=== PATIENT | female | born 1985 | race Caucasian/White ===

== ENCOUNTER 2016-10-21 16:46 | Emergency (ER) | payer OTHER ==
--- NOTE | 2016-10-21 18:46 | ED ORDER SUMMARY ---
..... Patient: ERIN HORAN OrderSheet [facility] VisitID: [id number] [address] [place] [address] 31y, F Registration Date/Time: 10/21/2016 ORDER SHEET Weight: 58.9 kg (stated) Allergies: Vicodin GENERAL ORDERS: Ankle 3 or 4V Left Urgent (17:23 10/21/2016 HBivens A.R.N.P.) (Ack 17:27 Alejandra) (18:20 SBalde R.N.) Oscalcis Left Urgent (17:55 10/21/2016 HBivens A.R.N.P.) (Ack 17:57 Alejandra) (18:20 SBalde R.N.) Splint (LE) (Left) (Short Leg Posterior) (18:25 10/21/2016 HBivens A.R.N.P.) (18:40 SBalde R.N.) Crutches (18:25 10/21/2016 HBivens A.R.N.P.) (18:40 SBalde R.N.) MEDICATION ORDERS: Hydrocodone-APAP PO 5/325 mg (NOW, HIGH ALERT MEDICATION) (17:23 10/21/2016 HBivens A.R.N.P.) (Ack 17:26 SBalde R.N.) (Cancelled: Patient Abdskpc67:36 SBalde R.N.) Toradol IM 60 mg (NOW) (17:51 10/21/2016 HBivens A.R.N.P.) (Cancelled: Other17:56 HBivens A.R.N.P.) IV FLUIDS: ORDER SHEET NOTES: [Electronically signed by Mell Cabrera R.N. (19:02 10/21/2016)] [Electronically signed by Hanny Blankenship.R.N.P. (21:25 10/21/2016)] [Electronically locked/signed by Mell Cabrera R.N. (19:02 10/21/2016)]
--- NOTE | 2016-10-21 18:46 | ED CLINICAL REPORT ---
Clinical Report - Physicians/Mid Levels [facility] [address] [place] [address] 10/21/2016 16:47 Patient: ERIN HORAN Time Seen: 16:58; initial patient contact, initial documentation, patient care assumed. Arrived- By private vehicle. Historian- patient. HISTORY OF PRESENT ILLNESS Chief Complaint: Injury to the left ankle. The injury happened just prior to arrival. Fell 5-6 feet while climbing and landed on the ground; slipped (attempting to climb 6 foot fence and fell). Occurred at home. Patient is experiencing severe pain. Patient denies injury to the head or neck. No other injury. REVIEW OF SYSTEMS The patient complains of pain on weight bearing. She has had swelling. No tingling, weakness, numbness or skin laceration. All systems otherwise negative, except as recorded above. PAST HISTORY See nurses notes. PROBLEMS: Substance Abuse. Anxiety Reaction. UTI - Urinary Tract Infection. Dental Abscess. Nephrolithiasis. Bipolar Disorder. --16:59 Mell Cabrera R.N. ADDITIONAL SURGERIES: Cholecystectomy. Tubal Ligation. --16:59 Mell Cabrera R.N. SOCIAL HISTORY Heavy tobacco smoker. History of occasional drug use: marijuana. No alcohol use. No recent travel. Is a local resident. ADDITIONAL NOTES The nursing notes have been reviewed with agreement regarding the chief complaint, HPI, ROS, PMH and patient medications and allergies. PHYSICAL EXAM Vital Signs: 10/21/2016 16:57 BP: 121/69. HR: 98. RR: 18. O2 saturation: 100%. Temp: 98.0 F. Have been reviewed as normal and appear to be correct. Appearance: Alert. Oriented X3. No acute distress. Head: Head atraumatic. Eyes: Pupils equal, round and reactive to light. Eyes normal inspection. Respiratory: No respiratory distress. Skin: Skin intact. Skin warm and dry. Extremities: Ankle injury present. Left lateral ankle: moderate tenderness and swelling of the lateral malleolus. Limited ROM secondary to pain (diminished plantar flexion, dorsiflexion, inversion and eversion). Neurovascular intact distally. No ligamentous laxity present. No joint effusion. No erythema, laceration, abrasion, ecchymosis or puncture wound. No foreign body or deformity. No foot injury. Foot and ankle exam otherwise negative. Extremities otherwise negative. Neuro, Vascular and Tendons: Vascular status intact. Sensation intact. Motor intact. Tendon function intact. Gait: Abnormal gait. Gait not tested due to pain. Neuro: Oriented X 3. No motor deficit. No sensory deficit. Note: isolated injury to ankle. LABS, X-RAYS, AND EKG X-Rays: Left ankle. Lt Ankle X-ray: (IMPRESSION: 1. Ankle joint appears intact. 2. Comminuted, impacted calcaneal fracture. 3. Questionable distal medial malleolar avulsion fracture. Electronically Final signed by:Amna Krause MD 10/21/2016 6:55:59 PM). The X-rays were interpreted by the radiologist and contemporaneously by me and discussed with the radiologist. PROGRESS AND PROCEDURES Splint Application: Time: 18:46. Posterior short leg fiberglass splint applied to left lower leg. Splint applied by tech. Reassessed extremity following splint application. Neurovascular intact. Follow-up recommended within 3 days. Fitted for crutches by the nurse. Course of Care: 17:58 17. 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 Patient counseled in person regarding the patient's stable condition, test results and diagnosis. 18:25. Differential Diagnosis: Other possible considerations: ankle fx vs sprain. Above considerations are based on history, physical exam, reassessment and X-Ray data. Differential diagnosis was discussed with patient. Disposition: Discharged home in good and improved condition (18:46). Condition: good and stable. CLINICAL IMPRESSION Closed nondisplaced transverse fracture of the body of the left calcaneus. No angulated fracture of the foot. Fall on same level by slipping. INSTRUCTIONS Apply ice for 20 minutes four times a day for two days until better. Don't apply ice directly to skin. Use crutches until released. Wear fiberglass splint until released. Elevate affected areas above chest level for two days until better. Warnings: GENERAL WARNINGS: Return or contact your physician immediately if your condition worsens or changes unexpectedly, if not improving as expected, or if other problems arise. Specifically return if problem worsens. Prescription Medications: Motrin 800 mg tablets: take 1 tablet orally every 8 hours as needed for pain. Dispense thirty (30). No refills. Substitution is permissible. Percocet 5 mg/325 mg: take 1 tablet orally every 6 hours as needed for pain. Dispense thirty (30). No refill. Understanding of the discharge instructions verbalized by patient. Follow-up with: [facility], [facility], , [address], , [place], [address]; Gil Mccormick M.D., Ortho, , [address], , [place], [address]; Tc Shafer M.D., Ortho, , [address], , [facility] [address]; Saul Davis MD, Orthopedic Surgeon, , [address], , [place], [address]; Desean Paul MD, Orthopedic Surgeon, , [address] , [place] [phone] Follow up in about three days even if well. Call for an appointment. Summary of care provided to patient. (Electronically signed by Hanny Blankenship A.R.N.P. 10/21/2016 21:25)
--- NOTE | 2016-10-21 18:46 | ED NURSING NOTES ---
Clinical Report - Nurses [facility] [address] [place] [address] 10/21/2016 16:47 Patient: ERIN HORAN TRIAGE Triage time 16:57 Jorge Alberto 2016. Acuity: LEVEL 4. Chief Complaint: LEFT LOWER EXTREMITY PAIN and SWELLING. Alert. No acute distress. MIREILLE COMA SCORE: Mireille Coma Scale: 15- eyes open spontaneously (4); best verbal response- oriented x 4 (5); best motor response- obeys commands (6). --17:01 Mell Cabrera R.N. 16:57 10/21/16. BP: 121/69. HR: 98. RR: 18. O2 saturation: 100%. Temp: 98.0 F. Pain level now 10/10. --17:01 Mell Cabrera R.N. Weight: 58.9 kg stated. Height/Length: 62 inches Per Patient. BMI: 23.8. --16:57 Mell Cabrera R.N. Medications None. --16:59 Mell Cabrera R.N. Allergies Vicodin.(itching, vomiting) --16:59 Mell Cabrera R.N. Medication/allergy information source: the patient. --17:01 Mell Cabrera R.N. History Arrived by private vehicle. Historian: patient. Accompanied by (dropped off). Primary physician (none). ( Fell off a wooden fence while trying to crawl over it.). Injury occurred. This occurred just prior to arrival. Occurred at home. She has had trouble walking. 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 (Naproxen). PAST MEDICAL HX: Tetanus status: unknown. SOCIAL HX: Current every day heavy tobacco smoker (cigarette)- less than 1 pack per day. History of drug use: marijuana. ("very rare I smoke"). No alcohol use. No infectious disease exposure. FALL RISK ASSESSMENT: Fall risk assessment completed. No fall risk identified. NUTRITIONAL RISK ASSESSMENT: The nutritional risk assessment revealed no deficiencies. FUNCTIONAL ASSESSMENT: Functional assessment: no impairments noted. LEARNING NEEDS ASSESSMENT: The learning needs assessment revealed no barriers. SKIN INTEGRITY ASSESSMENT: Skin integrity risk assessment completed. No skin integrity risk identified. --17:01 Mell Cabrera R.N. PROBLEMS: Substance Abuse. Anxiety Reaction. UTI - Urinary Tract Infection. Dental Abscess. Nephrolithiasis. Bipolar Disorder. --16:59 Mell Cabrera R.N. ADDITIONAL SURGERIES: Cholecystectomy. Tubal Ligation. --16:59 Mell Cabrera R.N. Interventions ID band on patient. To room. --17:01 Mell Cabrera R.N. PHYSICAL ASSESSMENT To room via wheelchair. GENERAL / NEURO / PSYCH: Alert. Appears in no acute distress. EXTREMITIES: Limited ROM present (pt refuses to walk on it.). Extremity pulses are within normal limits. Neuro-vascular status intact to the extremity. Left ankle: tenderness and swelling. Left foot: tenderness. SKIN: Skin is warm and dry. --17:37 Mell Cabrera R.N. NURSING PROGRESS NOTES Patient ready for evaluation- ED physician and PERSONAL LINES INSURANCE AGENT notified. --17:01 Mell Cabrear R.N. Cold pack applied. Extremity elevated. --17:01 Mell Cabrera R.N. Call light placed in reach. Side rails up x 2. --17:01 Mell Cabrera R.N. ( Pt has had her x-rays. Offered Tordol, however pt took Ibuprofen 800 mg at 1600. Pt also allergic to Vicodin. Cancelled orders. Provider aware. No new orders at this time.). --18:24 Mell Cabrera R.N. Posterior fiberglass lower extremity splint applied to left leg, ankle and foot by tech. Distal pulses intact, sensation intact and motor within normal limits. --18:52 Debbie Christian, JEANA Tech1 Patient fit with new crutches. Crutch training performed by nurse; the patient demonstrated proper use (5'3 fitting, pt demonstrated, gait steady.). --19:00 Mell Cabrera R.N. ( Splint checked by Provider. +CMS. Discussed showering and bathing. Discussed RICE, discussed NSAIDS and Percocet rotation. Discussed follow up and if pt ends up wearing a boot, she needs to inquire about a riser for her other foot/shoe. Pt agrees to all of this.). --19:01 Mell Cabrera R.N. DISPOSITION / DISCHARGE Condition at departure: improved and stable. Fall risk assessment completed; using crutches. No learning barriers present. Discharge instructions provided and reviewed with the patient. Reviewed medication(s). Patient verbalized understanding. Written instructions provided in Armenian. The patient was discharged by the nurse practitioner. She was discharged home and accompanied by spouse. She left the Emergency Department ambulatory and via private vehicle. Spouse driving. --19:02 Mell Cabrera R.N. 19:01 10/21/16. BP: 98/63. HR: 90. RR: 18. O2 saturation: 100%. Pain level now 610. --19:02 Mell Cabrera R.N. Departure time: 18:58 Oct 21 2016. --19:02 Mell Cabrera R.N. Locked/Released at 10/21/2016 19:02 by Mell Cabrera R.N.
--- NOTE | 2016-10-21 18:46 | ED NURSING NOTES ---
Clinical Report - Nurses [facility] [address] [address] 10/21/2016 16:47 Patient: ERIN HORAN TRIAGE Triage time 16:57 Jorge Alberto 2016. Acuity: LEVEL 4. Chief Complaint: LEFT LOWER EXTREMITY PAIN and SWELLING. Alert. No acute distress. MIREILLE COMA SCORE: Mireille Coma Scale: 15- eyes open spontaneously (4); best verbal response- oriented x 4 (5); best motor response- obeys commands (6). --17:01 Mell Cabrear R.N. 16:57 10/21/16. BP: 121/69. HR: 98. RR: 18. O2 saturation: 100%. Temp: 98.0 F. Pain level now 10/10. --17:01 Mell Cabrera R.N. Weight: 58.9 kg stated. Height/Length: 62 inches Per Patient. BMI: 23.8. --16:57 Mell Cabrera R.N. Medications None. --16:59 Mell Cabrera R.N. Allergies Vicodin.(itching, vomiting) --16:59 Mell Cabrera R.N. Medication/allergy information source: the patient. --17:01 Mell Cabrera R.N. History Arrived by private vehicle. Historian: patient. Accompanied by (dropped off). Primary physician (none). ( Fell off a wooden fence while trying to crawl over it.). Injury occurred. This occurred just prior to arrival. Occurred at home. She has had trouble walking. 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 (Naproxen). PAST MEDICAL HX: Tetanus status: unknown. SOCIAL HX: Current every day heavy tobacco smoker (cigarette)- less than 1 pack per day. History of drug use: marijuana. ("very rare I smoke"). No alcohol use. No infectious disease exposure. FALL RISK ASSESSMENT: Fall risk assessment completed. No fall risk identified. NUTRITIONAL RISK ASSESSMENT: The nutritional risk assessment revealed no deficiencies. FUNCTIONAL ASSESSMENT: Functional assessment: no impairments noted. LEARNING NEEDS ASSESSMENT: The learning needs assessment revealed no barriers. SKIN INTEGRITY ASSESSMENT: Skin integrity risk assessment completed. No skin integrity risk identified. --17:01 Mell Cabrera R.N. PROBLEMS: Substance Abuse. Anxiety Reaction. UTI - Urinary Tract Infection. Dental Abscess. Nephrolithiasis. Bipolar Disorder. --16:59 Mell Cabrera R.N. ADDITIONAL SURGERIES: Cholecystectomy. Tubal Ligation. --16:59 Mell Cabrera R.N. Interventions ID band on patient. To room. --17:01 Mell Cabrera R.N. PHYSICAL ASSESSMENT To room via wheelchair. GENERAL / NEURO / PSYCH: Alert. Appears in no acute distress. EXTREMITIES: Limited ROM present (pt refuses to walk on it.). Extremity pulses are within normal limits. Neuro-vascular status intact to the extremity. Left ankle: tenderness and swelling. Left foot: tenderness. SKIN: Skin is warm and dry. --17:37 Mell Cabrera R.N. NURSING PROGRESS NOTES Patient ready for evaluation- ED physician and CRUDE TESTER notified. --17:01 Mell Cabrera R.N. Cold pack applied. Extremity elevated. --17:01 Mell Cabrera R.N. Call light placed in reach. Side rails up x 2. --17:01 Mell Cabrera R.N. ( Pt has had her x-rays. Offered Tordol, however pt took Ibuprofen 800 mg at 1600. Pt also allergic to Vicodin. Cancelled orders. Provider aware. No new orders at this time.). --18:24 Mell Cabrera R.N. Posterior fiberglass lower extremity splint applied to left leg, ankle and foot by tech. Distal pulses intact, sensation intact and motor within normal limits. --18:52 Debbie Christian, JEANA Tech1 Patient fit with new crutches. Crutch training performed by nurse; the patient demonstrated proper use (5'3 fitting, pt demonstrated, gait steady.). --19:00 Mell Cabrera R.N. ( Splint checked by Provider. +CMS. Discussed showering and bathing. Discussed RICE, discussed NSAIDS and Percocet rotation. Discussed follow up and if pt ends up wearing a boot, she needs to inquire about a riser for her other foot/shoe. Pt agrees to all of this.). --19:01 Mell Cabrera R.N. DISPOSITION / DISCHARGE Condition at departure: improved and stable. Fall risk assessment completed; using crutches. No learning barriers present. Discharge instructions provided and reviewed with the patient. Reviewed medication(s). Patient verbalized understanding. Written instructions provided in Polish. The patient was discharged by the nurse practitioner. She was discharged home and accompanied by spouse. She left the Emergency Department ambulatory and via private vehicle. Spouse driving. --19:02 Mell Cabrera R.N. 19:01 10/21/16. BP: 98/63. HR: 90. RR: 18. O2 saturation: 100%. Pain level now 610. --19:02 Mell Cabrera R.N. Departure time: 18:58 Oct 21 2016. --19:02 Mell Cabrera R.N. Locked/Released at 10/21/2016 19:02 by Mell Cabrera R.N.
--- NOTE | 2016-10-21 18:46 | ED CLINICAL REPORT ---
Clinical Report - Physicians/Mid Levels [facility] [address] [place] [address] 10/21/2016 16:47 Patient: ERIN HORAN Time Seen: 16:58; initial patient contact, initial documentation, patient care assumed. Arrived- By private vehicle. Historian- patient. HISTORY OF PRESENT ILLNESS Chief Complaint: Injury to the left ankle. The injury happened just prior to arrival. Fell 5-6 feet while climbing and landed on the ground; slipped (attempting to climb 6 foot fence and fell). Occurred at home. Patient is experiencing severe pain. Patient denies injury to the head or neck. No other injury. REVIEW OF SYSTEMS The patient complains of pain on weight bearing. She has had swelling. No tingling, weakness, numbness or skin laceration. All systems otherwise negative, except as recorded above. PAST HISTORY See nurses notes. PROBLEMS: Substance Abuse. Anxiety Reaction. UTI - Urinary Tract Infection. Dental Abscess. Nephrolithiasis. Bipolar Disorder. --16:59 Mell Cabrera R.N. ADDITIONAL SURGERIES: Cholecystectomy. Tubal Ligation. --16:59 Mell Cabrera R.N. SOCIAL HISTORY Heavy tobacco smoker. History of occasional drug use: marijuana. No alcohol use. No recent travel. Is a local resident. ADDITIONAL NOTES The nursing notes have been reviewed with agreement regarding the chief complaint, HPI, ROS, PMH and patient medications and allergies. PHYSICAL EXAM Vital Signs: 10/21/2016 16:57 BP: 121/69. HR: 98. RR: 18. O2 saturation: 100%. Temp: 98.0 F. Have been reviewed as normal and appear to be correct. Appearance: Alert. Oriented X3. No acute distress. Head: Head atraumatic. Eyes: Pupils equal, round and reactive to light. Eyes normal inspection. Respiratory: No respiratory distress. Skin: Skin intact. Skin warm and dry. Extremities: Ankle injury present. Left lateral ankle: moderate tenderness and swelling of the lateral malleolus. Limited ROM secondary to pain (diminished plantar flexion, dorsiflexion, inversion and eversion). Neurovascular intact distally. No ligamentous laxity present. No joint effusion. No erythema, laceration, abrasion, ecchymosis or puncture wound. No foreign body or deformity. No foot injury. Foot and ankle exam otherwise negative. Extremities otherwise negative. Neuro, Vascular and Tendons: Vascular status intact. Sensation intact. Motor intact. Tendon function intact. Gait: Abnormal gait. Gait not tested due to pain. Neuro: Oriented X 3. No motor deficit. No sensory deficit. Note: isolated injury to ankle. LABS, X-RAYS, AND EKG X-Rays: Left ankle. Lt Ankle X-ray: (IMPRESSION: 1. Ankle joint appears intact. 2. Comminuted, impacted calcaneal fracture. 3. Questionable distal medial malleolar avulsion fracture. Electronically Final signed by:Amna Krause MD 10/21/2016 6:55:59 PM). The X-rays were interpreted by the radiologist and contemporaneously by me and discussed with the radiologist. PROGRESS AND PROCEDURES Splint Application: Time: 18:46. Posterior short leg fiberglass splint applied to left lower leg. Splint applied by tech. Reassessed extremity following splint application. Neurovascular intact. Follow-up recommended within 3 days. Fitted for crutches by the nurse. Course of Care: 17:58 17. 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 Patient counseled in person regarding the patient's stable condition, test results and diagnosis. 18:25. Differential Diagnosis: Other possible considerations: ankle fx vs sprain. Above considerations are based on history, physical exam, reassessment and X-Ray data. Differential diagnosis was discussed with patient. Disposition: Discharged home in good and improved condition (18:46). Condition: good and stable. CLINICAL IMPRESSION Closed nondisplaced transverse fracture of the body of the left calcaneus. No angulated fracture of the foot. Fall on same level by slipping. INSTRUCTIONS Apply ice for 20 minutes four times a day for two days until better. Don't apply ice directly to skin. Use crutches until released. Wear fiberglass splint until released. Elevate affected areas above chest level for two days until better. Warnings: GENERAL WARNINGS: Return or contact your physician immediately if your condition worsens or changes unexpectedly, if not improving as expected, or if other problems arise. Specifically return if problem worsens. Prescription Medications: Motrin 800 mg tablets: take 1 tablet orally every 8 hours as needed for pain. Dispense thirty (30). No refills. Substitution is permissible. Percocet 5 mg/325 mg: take 1 tablet orally every 6 hours as needed for pain. Dispense thirty (30). No refill. Understanding of the discharge instructions verbalized by patient. Follow-up with: [facility] [place], [facility], , [address], , [place], [address]; Gil Mccormick M.D., Ortho, , [address], , [place], [address]; Tc Shafer M.D., Ortho, , [address], , [facility] [address]; Saul Davis MD, Orthopedic Surgeon, , [address], , [place], [address]; Desean Paul MD, Orthopedic Surgeon, , [address] , [place] [phone] Follow up in about three days even if well. Call for an appointment. Summary of care provided to patient. (Electronically signed by Hanny Blankenship A.R.N.P. 10/21/2016 21:25)
--- NOTE | 2016-10-21 18:46 | ED ORDER SUMMARY ---
..... Patient: ERIN HORAN OrderSheet [facility] VisitID: [id number] [address] [place] [address] 31y, F Registration Date/Time: 10/21/2016 ORDER SHEET Weight: 58.9 kg (stated) Allergies: Vicodin GENERAL ORDERS: Ankle 3 or 4V Left Urgent (17:23 10/21/2016 HBivens A.R.N.P.) (Ack 17:27 Alejandra) (18:20 SBalde R.N.) [place]scalcis Left Urgent (17:55 10/21/2016 HBivens A.R.N.P.) (Ack 17:57 Alejandra) (18:20 SBalde R.N.) Splint (LE) (Left) (Short Leg Posterior) (18:25 10/21/2016 HBivens A.R.N.P.) (18:40 SBalde R.N.) Crutches (18:25 10/21/2016 HBivens A.R.N.P.) (18:40 SBalde R.N.) MEDICATION ORDERS: Hydrocodone-APAP PO 5/325 mg (NOW, HIGH ALERT MEDICATION) (17:23 10/21/2016 HBivens A.R.N.P.) (Ack 17:26 SBalde R.N.) (Cancelled: Patient Asdggkt83:36 SBalde R.N.) Toradol IM 60 mg (NOW) (17:51 10/21/2016 HBivens A.R.N.P.) (Cancelled: Other17:56 HBivens A.R.N.P.) IV FLUIDS: ORDER SHEET NOTES: [Electronically signed by Mell Cabrera R.N. (19:02 10/21/2016)] [Electronically signed by Hanny Blankenship.R.N.P. (21:25 10/21/2016)] [Electronically locked/signed by Mell Cabrera R.N. (19:02 10/21/2016)]
--- NOTE | 2016-10-21 18:56 | DIAGNOSTIC IMAGING REPORT ---
PROCEDURE: XR ANKLE 3 OR 4 VIEWS - LEFT INDICATION: TRAUMA/INJURY TECHNIQUE: Four views of the left ankle. COMPARISON: None. FINDINGS: Normal mineralization. Impacted, depressed , comminuted calcaneal fracture involving the mid and anterior aspects of the calcaneus. Questionable meniscal cortical avulsion of the distal aspect of the medial malleolus. Otherwise the distal tibia, fibula, and talus appear grossly intact. There is slight widening of the posterior subtalar joint and angle of Gissane. Ankle mortise is intact. Small tibiotalar joint effusion. Achilles tendon intact. IMPRESSION: 1. Ankle joint appears intact. 2. Comminuted, impacted calcaneal fracture. 3. Questionable distal medial malleolar avulsion fracture.
--- NOTE | 2016-10-21 19:03 | DIAGNOSTIC IMAGING REPORT ---
PROCEDURE: XR OSCALCIS - LEFT INDICATION: TRAUMA/INJURY TECHNIQUE: Two views of the left calcaneus. COMPARISON: None. FINDINGS: Impacted, mildly comminuted, depressed central calcaneal fracture through the posterior subtalar joint. One fracture plane courses coronal oblique posterior to the subtalar joint and other fracture plane courses anterior to the calcaneal body without extension to the posterior/dorsal surface. There is flattening of Bohler angle without other significant hindfoot dislocation. Soft tissue swelling along the plantar surface. No radiodense foreign bodies. IMPRESSION: 1. Depressed central calcaneal fracture with flattening the Bohler angle.
--- NOTE | 2016-10-21 21:25 | ED MED RECONCILIATION SUMMARY ---
Patient: ERIN HORAN Medication Reconciliation Report [facility] VisitID: [id number] [address] [place] [address] 31y, F Registration Date/Time: 10/21/2016 Weight: 58.9 kg Height/Length: 62 in. BMI: 23.8 ALLERGIES: Vicodin The patient's Home Medications are listed below: NONE. The source(s) of the original Home Medication information: patient The following Medications were given to the patient in the Emergency Department: None. The following Medications were prescribed to the patient: Motrin 800 mg tablets: take 1 tablet orally every 8 hours as needed for pain. Dispense thirty (30). No refills. Substitution is permissible. -- Hanny Blankenship, A.R.N.P. Percocet 5 mg/325 mg: take 1 tablet orally every 6 hours as needed for pain. Dispense thirty (30). No refill. -- Hanny Blankenship, A.R.N.P.
--- NOTE | 2016-10-21 21:25 | ED MAR SUMMARY ---
..... Medication Administration Record [facility] [address] [place], [place] [id number] Patient: ERIN HORAN Visit ID: [id number] 31y, F Weight: 58.9 kg Height/Length: 62 in BMI: 23.8 ALLERGIES: Vicodin
--- NOTE | 2016-10-21 21:25 | ED DISCHARGE INSTRUCTIONS ---
Patient: ERIN HORAN General Instructions [facility] VisitID: [id number] [address], [place] [address] 31y, F Registration Date/Time: 10/21/2016 Closed nondisplaced transverse fracture of the body of the left calcaneus. No angulated fracture of the foot. Fall on same level by slipping. INSTRUCTIONS Apply ice for 20 minutes four times a day for two days until better. Don't apply ice directly to skin. Use crutches until released. Wear fiberglass splint until released. Elevate affected areas above chest level for two days until better. Warnings: GENERAL WARNINGS: Return or contact your physician immediately if your condition worsens or changes unexpectedly, if not improving as expected, or if other problems arise. Specifically return if problem worsens. Prescription Medications: Motrin 800 mg tablets: take 1 tablet orally every 8 hours as needed for pain. Dispense thirty (30). No refills. Substitution is permissible. Percocet 5 mg/325 mg: take 1 tablet orally every 6 hours as needed for pain. Dispense thirty (30). No refill. Understanding of the discharge instructions verbalized by patient. Follow-up with: [facility], , [address], , [place] [id number]; Gil Mccormick M.D., Ortho, , [address], [place] [id number]; Tc Shafer M.D., Ortho, , [address] , [place] [id number]; Saul Davis MD, Orthopedic Surgeon, , [id number], , [place], [id number]; Desean Paul MD, Orthopedic Surgeon, , [address] [place] [address] Follow up in about three days even if well. Call for an appointment. Summary of care provided to patient. ADDITIONAL INFORMATION Mechanical Fall You have had a fall today. It appears that the cause is mechanical. That means that you slipped, tripped or lost your balance. If your fall had been due to fainting or a seizure, further tests would be required. Home Care: Rest today and resume your normal activities when you are feeling back to normal. If you were injured during the fall, follow the advice from your doctor regarding care of your injury. You may use acetaminophen (Tylenol) or ibuprofen (Motrin, Advil) to control pain, unless another pain medicine was prescribed. [NOTE: If you have chronic liver or kidney disease or ever had a stomach ulcer or GI bleeding, talk with your doctor before using these medicines.] Fall Prevention: Was there anything that caused your fall that can be fixed, removed, or replaced? Make your home safe by keeping walkways clear of objects you may trip over. Use non-slip pads under rugs. Do not walk in poorly lit areas. Do not stand on chairs or wobbly ladders. Use caution when reaching overhead or looking upward. This position can cause a loss of balance. Be sure your shoes fit properly, have non-slip bottoms and are in good condition. Be cautious when going up and down curbs, and walking on uneven sidewalks. If your balance is poor, consider using a cane or walker. Stay as active as you can. Balance, flexibility, strength, and endurance all come from exercise. They all play a role in preventing falls. Follow Up with your doctor or as advised by our staff. Get Prompt Medical Attention if any of the following occur: Repeated mechanical falls, or unexplained falls Dizziness, fainting or seizure Severe headache Chest pain or shortness of breath Palpitations (very rapid or very slow or irregular heartbeat) Blood in vomit, stools (black or red color) Weakness of an arm or leg or one side of the face Difficulty with speech or vision Fracture:Foot You have a fracture (break) of one of the bones in your foot. This will cause pain, swelling and sometimes bruising. It will take about 4-6 weeks to heal. A foot fracture may be treated with a special shoe, splint, cast or boot. Home Care: You may be given a splint, cast, shoe or boot to prevent movement at the injury. Unless you were told otherwise, use crutches or a walker and do not bear weight on the injured foot until cleared by your doctor to do so. (Crutches and walkers can be rented at many pharmacies and surgical/orthopedic supply stores). Do not put weight on a splint; it will break. Keep your leg elevated to reduce pain and swelling. When sleeping, place a pillow under the injured leg. When sitting, support the injured leg so it is level with your waist. This is very important during the first 48 hours. Apply an ice pack (ice cubes in a plastic bag, wrapped in a towel) over the injured area for 20 minutes every 1-2 hours the first day. You can place the ice pack directly over the splint/cast. Unless told otherwise, you can open the boot or shoe to apply ice. Continue with ice packs 3-4 times a day for the next two days, then as needed for the relief of pain and swelling. Keep the splint/cast/boot/shoe dry. When bathing, protect it with a large plastic bag, rubber-banded at the top end. If a fiberglass splint/cast or boot gets wet, you can dry it with a hair-dryer. Unless told otherwise, you can remove a boot or shoe to bathe. You may use acetaminophen (Tylenol) or ibuprofen (Motrin, Advil) to control pain, unless another pain medicine was prescribed. [NOTE: If you have chronic liver or kidney disease or ever had a stomach ulcer or GI bleeding, talk with your doctor before using these medicines.] Follow Up with your doctor within one week, or as advised by our staff, to be sure the bone is healing properly. If you were given a splint, it may be changed to a cast or boot at your follow-up visit.[NOTE: A radiologist will review any X-rays that were taken. We will notify you of any new findings that may affect your care.] Get Prompt Medical Attention if any of the following occur: The plaster cast or splint becomes wet or soft The fiberglass cast or splint remains wet for more than 24 hours Increased tightness or pain under the cast or splint Toes become swollen, cold, blue, numb or tingly Crutch Walking Crutch Adjustment Make sure the crutches you use are adjusted to fit you. When you stand, there should be room to fit 2-3 fingers between the top of the crutch and your armpit. Your elbow should be slightly bent when holding the hand electronics lead. Crutch Walking: Place the crutches forward 12" in front of and 6" to the side of your feet. Lean your weight forward as you push down on the handgrips. Your weight should be on your hands and yourstrong leg, not your armpits . Let your body swing through, landing on the strong leg. Advance the crutches forward again. The crutch and the injured leg should move together. Going Up Steps: ("Up with the good") With both crutches on the same step as your feet, push down on the handgrips. Balancing with very light pressure on the weak leg, let your hands support your weight as you raise your strong leg onto the next higher step. Transfer all your weight to your strong leg (still bent) as you move the crutches up to the next step alongside the strong leg. With your weight evenly balanced on the two crutches and your strong leg, straighten your strong knee as you raise the weak leg up to the next step. Going Down Steps: ("Down with the bad") With both crutches on the same step as your feet, push down on the handgrips. With your weight evenly balanced on the two crutches and your strong leg, bend your strong knee as you lower the weak leg down to the next step. Let your strong leg support you (still bent) as you move the crutches down alongside the weak leg. Transfer your weight to your hands, balancing with very light pressure on the weak leg as you lower your strong leg alongside your weak leg. Splint Care, Fiberglass The following will help you care for your splint: It will take up totwo hours for your fiber glass splint to fully harden; therefore, do notapply any pressure on it during that time or else it may break. To prevent swelling under the splint, for thefirst 48 hours: If the splint is on yourarm, keep it in a sling or raised to shoulder level when sitting or standing; rest it on your chest or on a pillow at your side when lying down. If the splint is on yourfoot, keep it propped up above the level of your waist when sitting or lying. Avoid crutch walking as much as possible during this time. Keep the splint/cast dry at all times. Bathe with your splint/cast well out of the water, protected with a large plastic bag, rubber-banded at the top end. If a fiberglass cast or splint gets wet, you can dry it with a hair-dryer. Follow-up care Follow up with your doctor or this facility as advised. When to seek medical care Get prompt medical attention if any of the following occur: Bad odor from the splint or wound-fluid stains the splint The splint cracks or remains wet over 24 hours Increasing tightness or pressure under the splint Fingers or toes become swollen, cold, blue, numb or tingly Increased pain under the splint Ibuprofen Oral tablet What is this medicine? IBUPROFEN (eye BYOO proe fen) is a non-steroidal anti-inflammatory drug (NSAID). It is used for dental pain, fever, headaches or migraines, osteoarthritis, rheumatoid arthritis, or painful monthly periods. It can also relieve minor aches and pains caused by a cold, flu, or sore throat. How should I use this medicine? Take this medicine by mouth with a glass of water. Follow the directions on the prescription label. Take this medicine with food if your stomach gets upset. Try to not lie down for at least 10 minutes after you take the medicine. Take your medicine at regular intervals. Do not take your medicine more often than directed. A special MedGuide will be given to you by the pharmacist with each prescription and refill. Be sure to read this information carefully each time. Talk to your television repair teacher regarding the use of this medicine in children. Special care may be needed. What side effects may I notice from receiving this medicine? Side effects that you should report to your doctor or health care team assistant as soon as possible: allergic reactions like skin rash, itching or hives, swelling of the face, lips, or tongue black or bloody stools, blood in the urine or in vomit breathing problems changes in vision chest pain general ill feeling or flu-like symptoms nausea or vomiting redness, blistering, peeling or loosening of the skin, including inside the mouth slurred speech or weakness on one side of the body stomach pain unexplained weight gain or swelling unusually weak or tired yellowing of eyes or skin Side effects that usually do not require medical attention (report to your doctor or health care team assistant if they continue or are bothersome): constipation or diarrhea dizziness gas or heartburn stomach upset What may interact with this medicine? Do not take this medicine with any of the following medications: cidofovir ketorolac methotrexate pemetrexed This medicine may also interact with the following medications: alcohol aspirin diuretics lithium other drugs for inflammation like prednisone warfarin What if I miss a dose? If you miss a dose, take it as soon as you can. If it is almost time for your next dose, take only that dose. Do not take double or extra doses. Where should I keep my medicine? Keep out of the reach of children. Store at room temperature between 15 and 30 degrees C (59 and 86 degrees F). Keep container tightly closed. Throw away any unused medicine after the expiration date. What should I tell my health care provider before I take this medicine? They need to know if you have any of these conditions: asthma cigarette smoker drink more than 3 alcohol containing drinks a day heart disease or circulation problems such as heart failure or leg edema (fluid retention) high blood pressure kidney disease liver disease stomach bleeding or ulcers an unusual or allergic reaction to ibuprofen, aspirin, other NSAIDS, other medicines, foods, dyes, or preservatives or trying to get breast-feeding What should I watch for while using this medicine? Tell your doctor or healthcare professional if your symptoms do not start to get better or if they get worse. This medicine does not prevent heart attack or stroke. In fact, this medicine may increase the chance of a heart attack or stroke. The chance may increase with longer use of this medicine and in people who have heart disease. If you take aspirin to prevent heart attack or stroke, talk with your doctor or health care team assistant. Do not take other medicines that contain aspirin, ibuprofen, or naproxen with this medicine. Side effects such as stomach upset, nausea, or ulcers may be more likely to occur. Many medicines available without a prescription should not be taken with this medicine. This medicine can cause ulcers and bleeding in the stomach and intestines at any time during treatment. Ulcers and bleeding can happen without warning symptoms and can cause . To reduce your risk, do not smoke cigarettes or drink alcohol while you are taking this medicine. You may get drowsy or dizzy. Do not drive, use machinery, or do anything that needs mental alertness until you know how this medicine affects you. Do not stand or sit up quickly, especially if you are an older patient. This reduces the risk of dizzy or fainting spells. This medicine can cause you to bleed more easily. Try to avoid damage to your teeth and gums when you brush or floss your teeth. Oxycodone Hydrochloride, Acetaminophen Oral tablet What is this medicine? ACETAMINOPHEN; OXYCODONE (a set a [place] hazel fen; ox grayson BACA done) is a pain reliever. It is used to treat mild to moderate pain. How should I use this medicine? Take this medicine by mouth with a full glass of water. Follow the directions on the prescription label. Take your medicine at regular intervals. Do not take your medicine more often than directed. Talk to your television repair teacher regarding the use of this medicine in children. Special care may be needed. Patients over 65 years old may have a stronger reaction and need a smaller dose. What side effects may I notice from receiving this medicine? Side effects that you should report to your doctor or health care team assistant as soon as possible: allergic reactions like skin rash, itching or hives, swelling of the face, lips, or tongue breathing difficulties, wheezing confusion light headedness or fainting spells severe stomach pain yellowing of the skin or the whites of the eyes Side effects that usually do not require medical attention (report to your doctor or health care team assistant if they continue or are bothersome): dizziness drowsiness nausea vomiting What may interact with this medicine? alcohol antihistamines barbiturates like amobarbital, butalbital, butabarbital, methohexital, pentobarbital, phenobarbital, thiopental, and secobarbital benztropine drugs for bladder problems like solifenacin, trospium, oxybutynin, tolterodine, hyoscyamine, and methscopolamine drugs for breathing problems like ipratropium and tiotropium drugs for certain stomach or intestine problems like propantheline, homatropine methylbromide, glycopyrrolate, atropine, belladonna, and dicyclomine general anesthetics like etomidate, ketamine, nitrous oxide, propofol, desflurane, enflurane, halothane, isoflurane, and sevoflurane medicines for depression, anxiety, or psychotic disturbances medicines for sleep muscle relaxants naltrexone narcotic medicines (opiates) for pain phenothiazines like perphenazine, thioridazine, chlorpromazine, mesoridazine, fluphenazine, prochlorperazine, promazine, and trifluoperazine scopolamine tramadol trihexyphenidyl What if I miss a dose? If you miss a dose, take it as soon as you can. If it is almost time for your next dose, take only that dose. Do not take double or extra doses. Where should I keep my medicine? Keep out of the reach of children. This medicine can be abused. Keep your medicine in a safe place to protect it from theft. Do not share this medicine with anyone. Selling or giving away this medicine is dangerous and against the law. Store at room temperature between 20 and 25 degrees C (68 and 77 degrees F). Keep container tightly closed. Protect from light. This medicine may cause accidental overdose and if it is taken by other adults, children, or pets. Flush any unused medicine down the toilet to reduce the chance of harm. Do not use the medicine after the expiration date. What should I tell my health care provider before I take this medicine? They need to know if you have any of these conditions: brain tumor Crohn's disease, inflammatory bowel disease, or ulcerative colitis drink more than 3 alcohol containing drinks per day drug abuse or addiction head injury heart or circulation problems kidney disease or problems going to the bathroom liver disease lung disease, asthma, or breathing problems an unusual or allergic reaction to acetaminophen, oxycodone, other opioid analgesics, other medicines, foods, dyes, or preservatives or trying to get breast-feeding What should I watch for while using this medicine? Tell your doctor or health care team assistant if your pain does not go away, if it gets worse, or if you have new or a different type of pain. You may develop tolerance to the medicine. Tolerance means that you will need a higher dose of the medication for pain relief. Tolerance is normal and is expected if you take this medicine for a long time. Do not suddenly stop taking your medicine because you may develop a severe reaction. Your body becomes used to the medicine. This does NOT mean you are addicted. Addiction is a behavior related to getting and using a drug for a non-medical reason. If you have pain, you have a medical reason to take pain medicine. Your doctor will tell you how much medicine to take. If your doctor wants you to stop the medicine, the dose will be slowly lowered over time to avoid any side effects. You may get drowsy or dizzy. Do not drive, use machinery, or do anything that needs mental alertness until you know how this medicine affects you. Do not stand or sit up quickly, especially if you are an older patient. This reduces the risk of dizzy or fainting spells. Alcohol may interfere with the effect of this medicine. Avoid alcoholic drinks. There are different types of narcotic medicines (opiates) for pain. If you take more than one type at the same time, you may have more side effects. Give your health care provider a list of all medicines you use. Your doctor will tell you how much medicine to take. Do not take more medicine than directed. Call emergency for help if you have problems breathing. The medicine will cause constipation. Try to have a bowel movement at least every 2 to 3 days. If you do not have a bowel movement for 3 days, call your doctor or health care team assistant. Do not take Tylenol (acetaminophen) or medicines that have acetaminophen with this medicine. Too much acetaminophen can be very dangerous. Many nonprescription medicines contain acetaminophen. Always read the labels carefully to avoid taking more acetaminophen. You have been given the following additional information: Fall, Mechanical Fracture, Foot Crutch Walking Splint Care, Fiberglass Ibuprofen Oral tablet Oxycodone Hydrochloride, Acetaminophen Oral tablet (Electronically signed by Hanny Blankenship A.R.N.P. 10/21/2016 21:25)
--- NOTE | 2016-10-21 21:25 | ED MAR SUMMARY ---
..... Medication Administration Record [facility] [address], [place] [id number] Patient: ERIN HORAN Visit ID: [id number] 31y, F Weight: 58.9 kg Height/Length: 62 in BMI: 23.8 ALLERGIES: Vicodin
--- NOTE | 2016-10-21 21:25 | ED DISCHARGE INSTRUCTIONS ---
Patient: ERIN HORAN General Instructions [facility] VisitID: [id number] [address], [place] [address] 31y, F Registration Date/Time: 10/21/2016 Closed nondisplaced transverse fracture of the body of the left calcaneus. No angulated fracture of the foot. Fall on same level by slipping. INSTRUCTIONS Apply ice for 20 minutes four times a day for two days until better. Don't apply ice directly to skin. Use crutches until released. Wear fiberglass splint until released. Elevate affected areas above chest level for two days until better. Warnings: GENERAL WARNINGS: Return or contact your physician immediately if your condition worsens or changes unexpectedly, if not improving as expected, or if other problems arise. Specifically return if problem worsens. Prescription Medications: Motrin 800 mg tablets: take 1 tablet orally every 8 hours as needed for pain. Dispense thirty (30). No refills. Substitution is permissible. Percocet 5 mg/325 mg: take 1 tablet orally every 6 hours as needed for pain. Dispense thirty (30). No refill. Understanding of the discharge instructions verbalized by patient. Follow-up with: [facility], , [address], , [place] [address]; Gil Mccormick M.D., Ortho, , [address], [place] [id number]; Tc Shafer M.D., Ortho, , [address], , [place] [id number]; Saul Davis MD, Orthopedic Surgeon, , [id number], , [place], [id number]; Desean Paul MD, Orthopedic Surgeon, , [address] [place] [id number] Follow up in about three days even if well. Call for an appointment. Summary of care provided to patient. ADDITIONAL INFORMATION Mechanical Fall You have had a fall today. It appears that the cause is mechanical. That means that you slipped, tripped or lost your balance. If your fall had been due to fainting or a seizure, further tests would be required. Home Care: Rest today and resume your normal activities when you are feeling back to normal. If you were injured during the fall, follow the advice from your doctor regarding care of your injury. You may use acetaminophen (Tylenol) or ibuprofen (Motrin, Advil) to control pain, unless another pain medicine was prescribed. [NOTE: If you have chronic liver or kidney disease or ever had a stomach ulcer or GI bleeding, talk with your doctor before using these medicines.] Fall Prevention: Was there anything that caused your fall that can be fixed, removed, or replaced? Make your home safe by keeping walkways clear of objects you may trip over. Use non-slip pads under rugs. Do not walk in poorly lit areas. Do not stand on chairs or wobbly ladders. Use caution when reaching overhead or looking upward. This position can cause a loss of balance. Be sure your shoes fit properly, have non-slip bottoms and are in good condition. Be cautious when going up and down curbs, and walking on uneven sidewalks. If your balance is poor, consider using a cane or walker. Stay as active as you can. Balance, flexibility, strength, and endurance all come from exercise. They all play a role in preventing falls. Follow Up with your doctor or as advised by our staff. Get Prompt Medical Attention if any of the following occur: Repeated mechanical falls, or unexplained falls Dizziness, fainting or seizure Severe headache Chest pain or shortness of breath Palpitations (very rapid or very slow or irregular heartbeat) Blood in vomit, stools (black or red color) Weakness of an arm or leg or one side of the face Difficulty with speech or vision Fracture:Foot You have a fracture (break) of one of the bones in your foot. This will cause pain, swelling and sometimes bruising. It will take about 4-6 weeks to heal. A foot fracture may be treated with a special shoe, splint, cast or boot. Home Care: You may be given a splint, cast, shoe or boot to prevent movement at the injury. Unless you were told otherwise, use crutches or a walker and do not bear weight on the injured foot until cleared by your doctor to do so. (Crutches and walkers can be rented at many pharmacies and surgical/orthopedic supply stores). Do not put weight on a splint; it will break. Keep your leg elevated to reduce pain and swelling. When sleeping, place a pillow under the injured leg. When sitting, support the injured leg so it is level with your waist. This is very important during the first 48 hours. Apply an ice pack (ice cubes in a plastic bag, wrapped in a towel) over the injured area for 20 minutes every 1-2 hours the first day. You can place the ice pack directly over the splint/cast. Unless told otherwise, you can open the boot or shoe to apply ice. Continue with ice packs 3-4 times a day for the next two days, then as needed for the relief of pain and swelling. Keep the splint/cast/boot/shoe dry. When bathing, protect it with a large plastic bag, rubber-banded at the top end. If a fiberglass splint/cast or boot gets wet, you can dry it with a hair-dryer. Unless told otherwise, you can remove a boot or shoe to bathe. You may use acetaminophen (Tylenol) or ibuprofen (Motrin, Advil) to control pain, unless another pain medicine was prescribed. [NOTE: If you have chronic liver or kidney disease or ever had a stomach ulcer or GI bleeding, talk with your doctor before using these medicines.] Follow Up with your doctor within one week, or as advised by our staff, to be sure the bone is healing properly. If you were given a splint, it may be changed to a cast or boot at your follow-up visit.[NOTE: A radiologist will review any X-rays that were taken. We will notify you of any new findings that may affect your care.] Get Prompt Medical Attention if any of the following occur: The plaster cast or splint becomes wet or soft The fiberglass cast or splint remains wet for more than 24 hours Increased tightness or pain under the cast or splint Toes become swollen, cold, blue, numb or tingly Crutch Walking Crutch Adjustment Make sure the crutches you use are adjusted to fit you. When you stand, there should be room to fit 2-3 fingers between the top of the crutch and your armpit. Your elbow should be slightly bent when holding the hand bridge painter. Crutch Walking: Place the crutches forward 12" in front of and 6" to the side of your feet. Lean your weight forward as you push down on the handgrips. Your weight should be on your hands and yourstrong leg, not your armpits . Let your body swing through, landing on the strong leg. Advance the crutches forward again. The crutch and the injured leg should move together. Going Up Steps: ("Up with the good") With both crutches on the same step as your feet, push down on the handgrips. Balancing with very light pressure on the weak leg, let your hands support your weight as you raise your strong leg onto the next higher step. Transfer all your weight to your strong leg (still bent) as you move the crutches up to the next step alongside the strong leg. With your weight evenly balanced on the two crutches and your strong leg, straighten your strong knee as you raise the weak leg up to the next step. Going Down Steps: ("Down with the bad") With both crutches on the same step as your feet, push down on the handgrips. With your weight evenly balanced on the two crutches and your strong leg, bend your strong knee as you lower the weak leg down to the next step. Let your strong leg support you (still bent) as you move the crutches down alongside the weak leg. Transfer your weight to your hands, balancing with very light pressure on the weak leg as you lower your strong leg alongside your weak leg. Splint Care, Fiberglass The following will help you care for your splint: It will take up totwo hours for your fiber glass splint to fully harden; therefore, do notapply any pressure on it during that time or else it may break. To prevent swelling under the splint, for thefirst 48 hours: If the splint is on yourarm, keep it in a sling or raised to shoulder level when sitting or standing; rest it on your chest or on a pillow at your side when lying down. If the splint is on yourfoot, keep it propped up above the level of your waist when sitting or lying. Avoid crutch walking as much as possible during this time. Keep the splint/cast dry at all times. Bathe with your splint/cast well out of the water, protected with a large plastic bag, rubber-banded at the top end. If a fiberglass cast or splint gets wet, you can dry it with a hair-dryer. Follow-up care Follow up with your doctor or this facility as advised. When to seek medical care Get prompt medical attention if any of the following occur: Bad odor from the splint or wound-fluid stains the splint The splint cracks or remains wet over 24 hours Increasing tightness or pressure under the splint Fingers or toes become swollen, cold, blue, numb or tingly Increased pain under the splint Ibuprofen Oral tablet What is this medicine? IBUPROFEN (eye BYOO proe fen) is a non-steroidal anti-inflammatory drug (NSAID). It is used for dental pain, fever, headaches or migraines, osteoarthritis, rheumatoid arthritis, or painful monthly periods. It can also relieve minor aches and pains caused by a cold, flu, or sore throat. How should I use this medicine? Take this medicine by mouth with a glass of water. Follow the directions on the prescription label. Take this medicine with food if your stomach gets upset. Try to not lie down for at least 10 minutes after you take the medicine. Take your medicine at regular intervals. Do not take your medicine more often than directed. A special MedGuide will be given to you by the pharmacist with each prescription and refill. Be sure to read this information carefully each time. Talk to your solutions analyst regarding the use of this medicine in children. Special care may be needed. What side effects may I notice from receiving this medicine? Side effects that you should report to your doctor or health women's health care nurse practitioner as soon as possible: allergic reactions like skin rash, itching or hives, swelling of the face, lips, or tongue black or bloody stools, blood in the urine or in vomit breathing problems changes in vision chest pain general ill feeling or flu-like symptoms nausea or vomiting redness, blistering, peeling or loosening of the skin, including inside the mouth slurred speech or weakness on one side of the body stomach pain unexplained weight gain or swelling unusually weak or tired yellowing of eyes or skin Side effects that usually do not require medical attention (report to your doctor or health women's health care nurse practitioner if they continue or are bothersome): constipation or diarrhea dizziness gas or heartburn stomach upset What may interact with this medicine? Do not take this medicine with any of the following medications: cidofovir ketorolac methotrexate pemetrexed This medicine may also interact with the following medications: alcohol aspirin diuretics lithium other drugs for inflammation like prednisone warfarin What if I miss a dose? If you miss a dose, take it as soon as you can. If it is almost time for your next dose, take only that dose. Do not take double or extra doses. Where should I keep my medicine? Keep out of the reach of children. Store at room temperature between 15 and 30 degrees C (59 and 86 degrees F). Keep container tightly closed. Throw away any unused medicine after the expiration date. What should I tell my health care provider before I take this medicine? They need to know if you have any of these conditions: asthma cigarette smoker drink more than 3 alcohol containing drinks a day heart disease or circulation problems such as heart failure or leg edema (fluid retention) high blood pressure kidney disease liver disease stomach bleeding or ulcers an unusual or allergic reaction to ibuprofen, aspirin, other NSAIDS, other medicines, foods, dyes, or preservatives or trying to get breast-feeding What should I watch for while using this medicine? Tell your doctor or healthcare professional if your symptoms do not start to get better or if they get worse. This medicine does not prevent heart attack or stroke. In fact, this medicine may increase the chance of a heart attack or stroke. The chance may increase with longer use of this medicine and in people who have heart disease. If you take aspirin to prevent heart attack or stroke, talk with your doctor or health women's health care nurse practitioner. Do not take other medicines that contain aspirin, ibuprofen, or naproxen with this medicine. Side effects such as stomach upset, nausea, or ulcers may be more likely to occur. Many medicines available without a prescription should not be taken with this medicine. This medicine can cause ulcers and bleeding in the stomach and intestines at any time during treatment. Ulcers and bleeding can happen without warning symptoms and can cause . To reduce your risk, do not smoke cigarettes or drink alcohol while you are taking this medicine. You may get drowsy or dizzy. Do not drive, use machinery, or do anything that needs mental alertness until you know how this medicine affects you. Do not stand or sit up quickly, especially if you are an older patient. This reduces the risk of dizzy or fainting spells. This medicine can cause you to bleed more easily. Try to avoid damage to your teeth and gums when you brush or floss your teeth. Oxycodone Hydrochloride, Acetaminophen Oral tablet What is this medicine? ACETAMINOPHEN; OXYCODONE (a set a [place] hazel fen; ox grayson BACA done) is a pain reliever. It is used to treat mild to moderate pain. How should I use this medicine? Take this medicine by mouth with a full glass of water. Follow the directions on the prescription label. Take your medicine at regular intervals. Do not take your medicine more often than directed. Talk to your solutions analyst regarding the use of this medicine in children. Special care may be needed. Patients over 65 years old may have a stronger reaction and need a smaller dose. What side effects may I notice from receiving this medicine? Side effects that you should report to your doctor or health women's health care nurse practitioner as soon as possible: allergic reactions like skin rash, itching or hives, swelling of the face, lips, or tongue breathing difficulties, wheezing confusion light headedness or fainting spells severe stomach pain yellowing of the skin or the whites of the eyes Side effects that usually do not require medical attention (report to your doctor or health women's health care nurse practitioner if they continue or are bothersome): dizziness drowsiness nausea vomiting What may interact with this medicine? alcohol antihistamines barbiturates like amobarbital, butalbital, butabarbital, methohexital, pentobarbital, phenobarbital, thiopental, and secobarbital benztropine drugs for bladder problems like solifenacin, trospium, oxybutynin, tolterodine, hyoscyamine, and methscopolamine drugs for breathing problems like ipratropium and tiotropium drugs for certain stomach or intestine problems like propantheline, homatropine methylbromide, glycopyrrolate, atropine, belladonna, and dicyclomine general anesthetics like etomidate, ketamine, nitrous oxide, propofol, desflurane, enflurane, halothane, isoflurane, and sevoflurane medicines for depression, anxiety, or psychotic disturbances medicines for sleep muscle relaxants naltrexone narcotic medicines (opiates) for pain phenothiazines like perphenazine, thioridazine, chlorpromazine, mesoridazine, fluphenazine, prochlorperazine, promazine, and trifluoperazine scopolamine tramadol trihexyphenidyl What if I miss a dose? If you miss a dose, take it as soon as you can. If it is almost time for your next dose, take only that dose. Do not take double or extra doses. Where should I keep my medicine? Keep out of the reach of children. This medicine can be abused. Keep your medicine in a safe place to protect it from theft. Do not share this medicine with anyone. Selling or giving away this medicine is dangerous and against the law. Store at room temperature between 20 and 25 degrees C (68 and 77 degrees F). Keep container tightly closed. Protect from light. This medicine may cause accidental overdose and if it is taken by other adults, children, or pets. Flush any unused medicine down the toilet to reduce the chance of harm. Do not use the medicine after the expiration date. What should I tell my health care provider before I take this medicine? They need to know if you have any of these conditions: brain tumor Crohn's disease, inflammatory bowel disease, or ulcerative colitis drink more than 3 alcohol containing drinks per day drug abuse or addiction head injury heart or circulation problems kidney disease or problems going to the bathroom liver disease lung disease, asthma, or breathing problems an unusual or allergic reaction to acetaminophen, oxycodone, other opioid analgesics, other medicines, foods, dyes, or preservatives or trying to get breast-feeding What should I watch for while using this medicine? Tell your doctor or health women's health care nurse practitioner if your pain does not go away, if it gets worse, or if you have new or a different type of pain. You may develop tolerance to the medicine. Tolerance means that you will need a higher dose of the medication for pain relief. Tolerance is normal and is expected if you take this medicine for a long time. Do not suddenly stop taking your medicine because you may develop a severe reaction. Your body becomes used to the medicine. This does NOT mean you are addicted. Addiction is a behavior related to getting and using a drug for a non-medical reason. If you have pain, you have a medical reason to take pain medicine. Your doctor will tell you how much medicine to take. If your doctor wants you to stop the medicine, the dose will be slowly lowered over time to avoid any side effects. You may get drowsy or dizzy. Do not drive, use machinery, or do anything that needs mental alertness until you know how this medicine affects you. Do not stand or sit up quickly, especially if you are an older patient. This reduces the risk of dizzy or fainting spells. Alcohol may interfere with the effect of this medicine. Avoid alcoholic drinks. There are different types of narcotic medicines (opiates) for pain. If you take more than one type at the same time, you may have more side effects. Give your health care provider a list of all medicines you use. Your doctor will tell you how much medicine to take. Do not take more medicine than directed. Call emergency for help if you have problems breathing. The medicine will cause constipation. Try to have a bowel movement at least every 2 to 3 days. If you do not have a bowel movement for 3 days, call your doctor or health women's health care nurse practitioner. Do not take Tylenol (acetaminophen) or medicines that have acetaminophen with this medicine. Too much acetaminophen can be very dangerous. Many nonprescription medicines contain acetaminophen. Always read the labels carefully to avoid taking more acetaminophen. You have been given the following additional information: Fall, Mechanical Fracture, Foot Crutch Walking Splint Care, Fiberglass Ibuprofen Oral tablet Oxycodone Hydrochloride, Acetaminophen Oral tablet (Electronically signed by Hanny Blankenship A.R.N.P. 10/21/2016 21:25)
--- NOTE | 2016-10-21 21:25 | ED MED RECONCILIATION SUMMARY ---
Patient: ERIN HORAN Medication Reconciliation Report [facility] VisitID: [id number] [address] [place] [address] 31y, F Registration Date/Time: 10/21/2016 Weight: 58.9 kg Height/Length: 62 in. BMI: 23.8 ALLERGIES: Vicodin The patient's Home Medications are listed below: NONE. The source(s) of the original Home Medication information: patient The following Medications were given to the patient in the Emergency Department: None. The following Medications were prescribed to the patient: Motrin 800 mg tablets: take 1 tablet orally every 8 hours as needed for pain. Dispense thirty (30). No refills. Substitution is permissible. -- Hanny Blankenship, A.R.N.P. Percocet 5 mg/325 mg: take 1 tablet orally every 6 hours as needed for pain. Dispense thirty (30). No refill. -- Hanny Blankenship, A.R.N.P.
== END 2016-10-21 18:58 | disposition home or self-care (01) ==
LOC: ED SRH 16:46
DX: S92.015A Nondisplaced fracture of body of left calcaneus, initial encounter for closed fracture (principal); W17.89XA Other fall from one level to another, initial encounter; Y93.9 Activity, unspecified; Y92.009 Unspecified place in unspecified non-institutional (private) residence as the place of occurrence of the external cause; Y99.9 Unspecified external cause status; F17.210 Nicotine dependence, cigarettes, uncomplicated; F12.10 Cannabis abuse, uncomplicated

== ENCOUNTER 2016-11-03 17:25 | Emergency (ER) | payer OTHER ==
--- NOTE | 2016-11-03 19:07 | ED NURSING NOTES ---
Clinical Report - Nurses [facility] [address] [place] [address] 11/03/2016 17:26 Patient: ERIN HORAN TRIAGE Triage time 18:12. Acuity: LEVEL 4. Chief Complaint: LEFT LOWER EXTREMITY PAIN. 18:19 11/03/16. Alert. No acute distress. MIREILLE COMA SCORE: Mireille Coma Scale: 15- eyes open spontaneously (4); best verbal response- oriented x 4 (5); best motor response- obeys commands (6). --18:19 Kenna Palacio R.N. 18:19 11/03/16. BP: 117/83. HR: 103. RR: 18. O2 saturation: 99%. Temp: 97.9 F. Pain level now 8/10. --18:19 Kenna Palacio R.N. Weight: 61.2 kg stated. Height/Length: 63 inches Per Patient. BMI: 23.9. --18:15 Kenna Palacio R.N. Medications Ibuprofen Oral. --18:18 Kenna Palacio R.N. Medication/allergy information source: the patient. --18:19 Kenna Palacio R.N. Allergies Vicodin.(itching, vomiting) --18:18 Kenna Palacio R.N. History Primary physician (no pcp). ( pt here for follow up from breaking left heel on 10/21/16. Pt states she is unable to get in to see orthopedic doctor as ordered due to insurance, so she is following up here.). Injury occurred. Treatment [employer]: Recently seen at this facility. PAST MEDICAL HX: Last normal menstrual period was 1 week ago. Denies current . SOCIAL HX: Heavy tobacco smoker (cigarette)- less than 1 pack per day. No alcohol use or drug use. ABUSE ASSESSMENT: Abuse assessment: The patient was asked "Do you feel safe in your home?". No report of abuse. FALL RISK ASSESSMENT: Fall risk assessment completed. No fall risk identified. NUTRITIONAL RISK ASSESSMENT: The nutritional risk assessment revealed no deficiencies. FUNCTIONAL ASSESSMENT: Functional assessment: no impairments noted. LEARNING NEEDS ASSESSMENT: The learning needs assessment revealed no barriers. SKIN INTEGRITY ASSESSMENT: Skin integrity risk assessment completed. No skin integrity risk identified. --18:19 Kenna Palacio R.N. PROBLEMS: Foot Fracture. Fall. Substance Abuse. Anxiety Reaction. UTI - Urinary Tract Infection. Dental Abscess. Nephrolithiasis. Bipolar Disorder. --18:18 Kenna Palacio R.N. ADDITIONAL SURGERIES: Cholecystectomy. Tubal Ligation. --18:18 Kenna Palacio R.N. Interventions ID band on patient. To waiting room. --18:19 Kenna Palacio R.N. DISPOSITION / DISCHARGE Departure time: 19:06. The patient left the Emergency Department without being seen by a physician. The patient did not notify the ED staff prior to leaving the department. ( Per registration staff; patient left from lobby). --19:06 Fanny Tinsley, JEANA Tech1. Locked/Released at 11/04/2016 8:22 by Kenna Palacio R.N.
--- NOTE | 2016-11-03 19:07 | ED NURSING NOTES ---
Clinical Report - Nurses [facility] [address] [place] [address] 11/03/2016 17:26 Patient: ERIN HORAN TRIAGE Triage time 18:12. Acuity: LEVEL 4. Chief Complaint: LEFT LOWER EXTREMITY PAIN. 18:19 11/03/16. Alert. No acute distress. MIREILLE COMA SCORE: Mireille Coma Scale: 15- eyes open spontaneously (4); best verbal response- oriented x 4 (5); best motor response- obeys commands (6). --18:19 Kenna Palacio R.N. 18:19 11/03/16. BP: 117/83. HR: 103. RR: 18. O2 saturation: 99%. Temp: 97.9 F. Pain level now 8/10. --18:19 Kenna Palacio R.N. Weight: 61.2 kg stated. Height/Length: 63 inches Per Patient. BMI: 23.9. --18:15 Kenna Palacio R.N. Medications Ibuprofen Oral. --18:18 Kenna Palacio R.N. Medication/allergy information source: the patient. --18:19 Kenna Palacio R.N. Allergies Vicodin.(itching, vomiting) --18:18 Kenna Palacio R.N. History Primary physician (no pcp). ( pt here for follow up from breaking left heel on 10/21/16. Pt states she is unable to get in to see orthopedic doctor as ordered due to insurance, so she is following up here.). Injury occurred. 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 PAST MEDICAL HX: Last normal menstrual period was 1 week ago. Denies current . SOCIAL HX: Heavy tobacco smoker (cigarette)- less than 1 pack per day. No alcohol use or drug use. ABUSE ASSESSMENT: Abuse assessment: The patient was asked "Do you feel safe in your home?". No report of abuse. FALL RISK ASSESSMENT: Fall risk assessment completed. No fall risk identified. NUTRITIONAL RISK ASSESSMENT: The nutritional risk assessment revealed no deficiencies. FUNCTIONAL ASSESSMENT: Functional assessment: no impairments noted. LEARNING NEEDS ASSESSMENT: The learning needs assessment revealed no barriers. SKIN INTEGRITY ASSESSMENT: Skin integrity risk assessment completed. No skin integrity risk identified. --18:19 Kenna Palacio R.N. PROBLEMS: Foot Fracture. Fall. Substance Abuse. Anxiety Reaction. UTI - Urinary Tract Infection. Dental Abscess. Nephrolithiasis. Bipolar Disorder. --18:18 Kenna Palacio R.N. ADDITIONAL SURGERIES: Cholecystectomy. Tubal Ligation. --18:18 Kenna Palacio R.N. Interventions ID band on patient. To waiting room. --18:19 Kenna Palacio R.N. DISPOSITION / DISCHARGE Departure time: 19:06. The patient left the Emergency Department without being seen by a physician. The patient did not notify the ED staff prior to leaving the department. ( Per registration staff; patient left from lobby). --19:06 Fanny Tinsley, JEANA Tech1. Locked/Released at 11/04/2016 8:22 by Kenna Palacio R.N.
--- NOTE | 2016-11-04 08:23 | ED MED RECONCILIATION SUMMARY ---
Patient: ERIN HORAN Medication Reconciliation Report [facility] VisitID: [id number] [address] [place] [address] 31y, F Registration Date/Time: 11/03/2016 Weight: 61.2 kg Height/Length: 63 in. BMI: 23.9 ALLERGIES: Vicodin The patient's Home Medications are listed below: THE FOLLOWING MEDICATIONS NEED TO BE RECONCILED: Ibuprofen Oral The source(s) of the original Home Medication information: patient The following Medications were given to the patient in the Emergency Department: None. The following Medications were prescribed to the patient: None.
--- NOTE | 2016-11-04 08:23 | ED MAR SUMMARY ---
..... Medication Administration Record [facility] [address] [place] [id number] Patient: ERIN HORAN Visit ID: [id number] 31y, F Weight: 61.2 kg Height/Length: 63 in BMI: 23.9 ALLERGIES: Vicodin
--- NOTE | 2016-11-04 08:23 | ED MED RECONCILIATION SUMMARY ---
Patient: ERIN HORAN Medication Reconciliation Report [facility] VisitID: [id number] [address] [place] [address] 31y, F Registration Date/Time: 11/03/2016 Weight: 61.2 kg Height/Length: 63 in. BMI: 23.9 ALLERGIES: Vicodin The patient's Home Medications are listed below: THE FOLLOWING MEDICATIONS NEED TO BE RECONCILED: Ibuprofen Oral The source(s) of the original Home Medication information: patient The following Medications were given to the patient in the Emergency Department: None. The following Medications were prescribed to the patient: None.
--- NOTE | 2016-11-04 08:23 | ED MAR SUMMARY ---
..... Medication Administration Record [facility] [address] [place] [id number] Patient: ERIN HORAN Visit ID: [id number] 31y, F Weight: 61.2 kg Height/Length: 63 in BMI: 23.9 ALLERGIES: Vicodin
== END 2016-11-03 19:05 | disposition left against medical advice (07) ==
LOC: ED SRH 17:25
DX: Z53.21 Procedure and treatment not carried out due to patient leaving prior to being seen by health care provider (principal)